=== PATIENT | male | born 1965 | race Caucasian/White ===

== ENCOUNTER 2023-04-15 12:36 | Emergency (ER) | payer MEDICAID, SELFPAY ==
--- NOTE | ~2023-04-15 | US_ITS ---
EXAMINATION: US SCROTUM CLINICAL INFORMATION: Left testicular pain and swelling. COMPARISON: None available. TECHNIQUE: A sonogram of the scrotum was performed assessing farooq-scale appearance and color Doppler flow. Spectral Doppler analysis of the arterial and venous flow were performed in the testes bilaterally. FINDINGS: RIGHT: Right testicle measures 5.2 x 2.6 x 3.5 cm, volume 24.5 mL. No focal testicular parenchymal lesions are visualized. Spectral Doppler analysis of the arterial and venous flow is normal in the right testis. Right epididymal head is normal in size. No right hydrocele or varicocele is seen. Right epididymal Doppler flow is normal. LEFT: Left testicle measures 5.8 x 2.5 x 3.2 cm, volume 23.8 mL. Possible left intratesticular cyst measures 0.8 x 0.6 x 0.6 cm. Spectral Doppler analysis of the arterial and venous flow is normal in the left testis. Left epididymis is not seen. Large complex left hydrocele with homogeneous low-level echoes. No internal color Doppler flow. US/US scrotum IMPRESSION: Large complex left hydrocele with homogeneous low-level echoes. Possible left intratesticular cyst measuring 0.8 x 0.6 x 0.6 cm. Short interval follow-up imaging is advised.
--- NOTE | ~2023-04-15 | US_ITS ---
EXAMINATION: US SCROTUM CLINICAL INFORMATION: Left testicular pain and swelling. COMPARISON: None available. TECHNIQUE: A sonogram of the scrotum was performed assessing farooq-scale appearance and color Doppler flow. Spectral Doppler analysis of the arterial and venous flow were performed in the testes bilaterally. FINDINGS: RIGHT: Right testicle measures 5.2 x 2.6 x 3.5 cm, volume 24.5 mL. No focal testicular parenchymal lesions are visualized. Spectral Doppler analysis of the arterial and venous flow is normal in the right testis. Right epididymal head is normal in size. No right hydrocele or varicocele is seen. Right epididymal Doppler flow is normal. LEFT: Left testicle measures 5.8 x 2.5 x 3.2 cm, volume 23.8 mL. Possible left intratesticular cyst measures 0.8 x 0.6 x 0.6 cm. Spectral Doppler analysis of the arterial and venous flow is normal in the left testis. Left epididymis is not seen. Large complex left hydrocele with homogeneous low-level echoes. No internal color Doppler flow. US/US scrotum doppler IMPRESSION: Large complex left hydrocele with homogeneous low-level echoes. Possible left intratesticular cyst measuring 0.8 x 0.6 x 0.6 cm. Short interval follow-up imaging is advised.
[2023-04-15 13:23] VITALS: BP 132/77; PULSE 62; RESP 16; TEMP 36.4; O2SAT 96; BMI 20.8
--- NOTE | 2023-04-15 13:25 | ED_ITS ---
HPI - General Adult General Chief complaint: Urogenital-Male Stated complaint: groin pain Time Seen by Provider: 04/15/23 18:32 Source: patient Mode of arrival: ambulatory Limitations: no limitations History of Present Illness HPI narrative: Patient is a 58-year-old male who presents emergency department for evaluation of testicular pain and swelling. He reports onset of symptoms to be 6 months ago. Initially just with swelling that had progressively increased. Over the past week he has developed pain which is becoming increasingly worse. He denies any trauma or injury. Denies any fevers, chills, abdominal pain, nausea, vomiting, hematuria, dysuria, urinary frequency/urgency/hesitancy, penile discharge, constipation. He denies any concern for sexually transmitted infections. Related Data Allergies Allergy/AdvReac Type Severity Reaction Status Date / Time No Known Allergies Allergy Unverified 04/15/23 13:23 Review of Systems Review of Systems: Yes all other systems are reviewed and are negative PMFSH Past Medical History Attestation statement: The following information was validated with the patient. Source: old records reviewed Social History Social History Advance Directives: No Advance Directives Information Provided: Yes Physical Exam ED Vital Signs: Vital Signs - 24 hr 04/15/23 13:23 Temperature 97.5 F Pulse Rate 62 Respiratory Rate 16 Blood Pressure 132/77 Pulse Oximetry 96 Oxygen Delivery Method Room Air BMI result Body Mass Index 20.8 Appearance: Alert.?Oriented to person, place and time. No acute distress.?Normal affect. Neck: Normal inspection.? Neck supple.?? CVS: Heart sounds normal. Normal heart rate and rhythm.? Pulses normal.?? Respiratory: No respiratory distress.? Lung sounds clear to auscultation bilaterally?? Genitourinary: Performed with structural draftsman; ED medical delivery technician Kaden. Asymmetrical scrotal swelling on the left without erythema, rash, lesions, or warmth. Positive cremasteric reflex, negative phren sign Abdomen: Soft and non-tender. Normoactive bowel sounds. ? Skin: Skin warm and dry.? Normal skin color.? Extremities: No lower extremity edema.? Neuro: Moves all extremities spontaneously. Sensation intact bilaterally.No fo flavia neuro deficits. Ambulates with normal steady gait. Course Course Course Narrative: This is an RME: Additional HPI, ROS, PE not included below will be deferred to primary provider. This is a [id number]-male presenting to the ER with complaints of left testicular pain/swelling x 1 week. He has had a hx of left testicular swelling, and was seen at urgent care but did not have good follow up. No urinary symptoms or rashes. He is not sexually active. Plan: US scrotum, UA Reevaluation(s) Reevaluation #1: I consulted with Urology, Dr. Buckner, at this time no acute intervention is required, patient will follow-up outpatient in office. Provided with office contact information. Discussed symptomatic treatment acetaminophen/ibuprofen for pain, supportive undergarments/jock strap. Reviewed worrisome signs and symptoms that would warrant re-evaluation in the emergency department. All questions answered. Stable for discharge. Time: 19:52 Medical Decision Making Medical Decision Making [facility] Narrative: Patient is a 4-year-old male presents emergency department for evaluation of testicular pain and swelling as per HPI. At the time my examination he is overall well-appearing. He is afebrile without tachycardia. Abdominal examination is benign. Genital examination as per HPI. Will obtain urinalysis in addition to scrotal ultrasound for further evaluation Differential Diagnosis Differential Diagnoses: The differential diagnosis associated with the presentation includes (Hydrocele, epididymitis, orchitis, testicular cyst, testicular torsion, neoplasm, sexually transmitted infection) Admission/Observation Consideration of admission/observation: Escalation of care including admission/observation considered (I considered admission for scrotal pain, see course for further narrative) Consult Healthcare Provider Management of the patient was discussed with: Vat Washer (Urology as per course) Lab Data MDM Lab Attestation statement: I reviewed the patient's lab results. (Urinalysis without evidence of infection or microscopic hematuria) Labs: Lab Results 04/15/23 Range/Units 19:23 Urine Color Yellow Urine Appearance Clear Urine pH 6.5 (5.0-9.0) Ur Specific [employer] 1.020 (1.005-1.025) Urine Protein Negative (Neg-Trace) mg/dL Urine Glucose (UA) Negative (Negative) mg/dL Urine Ketones Negative (Negative) mg/dL Urine Blood Negative (Negative) Urine Nitrite Negative (Negative) Ur Leukocyte Esterase Negative (Negative) Radiology Impression Discussion of test interpretation with radiology: I have reviewed the radiologist's reading. Radiologist Impression: US/US scrotum IMPRESSION: Large complex left hydrocele with homogeneous low-level echoes. ? Possible left intratesticular cyst measuring 0.8 x 0.6 x 0.6 cm. Short interval follow-up imaging is advised. Prescription Management I considered prescription management with: Pain Medication (Considered prescription management however felt that acetaminophen and ibuprofen would be appropriate) Discharge Plan Discharge Clinical Impression: Hydrocele, left Patient Disposition: Home, Self-Care Instructions: Hydrocele (ED) Additional Instructions: As discussed your ultrasound today shows that you have a hydrocele which is a collection of fluid inside of the scrotum. For this you will need to follow-up with urology outpatient. I have provided the contact information. Please call the office 1st thing tomorrow morning to schedule a follow-up visit. You can take ibuprofen 200 mg, 3 tablets (600mg) every 6-8 hours as needed for pain, in addition to Tylenol 500 mg, 2 tablets (1,000mg) every 4-6 hours as needed for pain, but not to exceed 3 doses daily (3,000mg).? It is recommended that you wear supportive undergarments such as boxer briefs and consider use of a jockstrap as this may decrease swelling and help with your pain. If you develop fevers, chills, urinary symptoms, redness or worsening swelling and pain of the scrotum than you should return back to emergency department. Referrals: Koko Buckner MD [Physician] -
[2023-04-15 19:44] LABS: Appearance Urine Clear; Color Urine Yellow; Glucose Urine UA Negative (Negative); Leukocyte Esterase Urine Negative (Negative); Nitrite Urine Negative (Negative); PH 6.5 (5.0-9.0); Urine Blood Negative (Negative); Urine Ketones Negative (Negative); Urine Protein Negative (Neg-Trace)
[2023-04-15 20:12] VITALS: BP 128/67; PULSE 67; RESP 19; TEMP 36.6; O2SAT 98
== END 2023-04-15 20:29 | disposition home or self-care (01) ==
PROVIDERS: Physician Assistant Medical; Emergency Provider Student in an Organized Health Care Education/Training Program
DX: N43.3 Hydrocele, unspecified (principal); N50.812 Left testicular pain
CPT/HCPCS: 76870; 81003; 93975; 99283; 99284